=== PATIENT | female | born 1990 | race African-American/Black ===

== ENCOUNTER 2016-08-19 04:15 | Emergency (ER) | payer SELFPAY ==
[~2016-08-19 04:15] MED LIST: ALBU8I INH; DOXY100T PO; HYDR-3533 PO; METR500I3 PO
[2016-08-19 04:16] VITALS: BP 137/89; PULSE 112; RESP 16; TEMP 98.2; O2SAT 100
== END 2016-08-19 05:00 | disposition left against medical advice (07) ==
LOC: NED 04:15
DX: R10.9 Unspecified abdominal pain (principal)
CPT/HCPCS: 99281

== ENCOUNTER 2016-09-30 02:25 | Emergency (ER) | payer OTHER ==
[2016-09-30 02:27] VITALS: BP 140/74; PULSE 94; RESP 16; TEMP 98; O2SAT 100
[2016-09-30] MEDS ORDERED: AMOX500T PO (02:53)
[2016-09-30] MEDS ORDERED: IBUP800T23 PO (02:53)
--- NOTE | 2016-09-30 02:56 | PD ---
HPI Chief Complaint: Oral / Dental Pain or Problem Time Seen by Provider: 02:54 Travel History International Travel<30 days: No Contact w/Intl Traveler<30days: No Traveled to known affect area: No History of Present Illness HPI 26-year-old black female presents to emergency Department with complaints of dental pain. She states that over the last several days she's had increasing pain in her left maxilla. She's noticed a swelling in her hard palate. She's had problems with her teeth for some time. Symptoms are moderate. No fever chills. No drainage. PFSH Past Medical History Asthma: Yes Depression: Yes Diminished Hearing: No Genitourinary: Yes (KIDNEY INFECTION) Kidney Stones: Yes Respiratory: Yes (ASTHMA) Immunizations Current: Yes Menopausal: No : 4 Para: 2 Miscarriage: 1 : 1 Social History Alcohol Use: No Tobacco Use: Yes (1/2PPD) Substance Use: No Allergies-Medications (Allergen,Severity, Reaction): Coded Allergies: Bactrim (Verified Allergy, Severe, HIVES, 09/30/16) Reported Meds & Prescriptions Reported Meds & Active Scripts Active Ibuprofen 800 Mg Tab 800 Mg PO Q8H PRN Amoxicillin 500 Mg Tab 1,000 Mg PO BID Lortab 5 mg/325 mg (Hydrocodone/Acetaminophen 5 mg/325 mg) 1 Tab 1 Tab PO Q6H PRN Metronidazole In Nacl 0.7 (Metronidazole In Nacl) 500 Mg Tab 500 Mg PO BID 14 Days Doxycycline Hyclate 100 mg (Doxycycline Hyclate) 100 Mg Tab 100 Mg PO BID 14 Days Reported Ventolin Hfa (Albuterol Sulfate) 8 Gm Aero 1 Puff INH Q4H PRN * SHAKE WELL BEFORE USE * Review of Systems Except as stated in HPI: all other systems reviewed are Neg Physical Exam Narrative GENERAL: Well-developed, well-nourished in no acute distress. Nontoxic appearing. HEAD: Normocephalic, atraumatic. EYES: Pupils equal round and reactive. Extraocular motions intact. No scleral icterus. No injection or drainage. ENT: TMs clear without erythema. The external auditory canals clear. Nose: clear . Posterior pharynx is pink and moist. No tonsillar edema or exudate. Uvula midline. Airway patent. The patient has multiple dental caries. She points to her left upper maxilla. Tooth #9 is decayed to the gumline. There is a swelling of the gingiva consistent with an abscess. NECK: Trachea midline.Supple, nontender, moves head freely. No central bony tenderness or spasm. CARDIOVASCULAR: Regular rate and rhythm without murmurs, gallops, or rubs. RESPIRATORY: Clear to auscultation. Breath sounds equal bilaterally. No wheezes , rales, or rhonchi. GASTROINTESTINAL: Abdomen soft, non-tender, nondistended. No hepato-splenomegaly , or palpable masses. No guarding. EXTREMITIES: No clubbing, cyanosis, or edema. No joint tenderness, effusion, or edema noted. BACK: Nontender without deformity or crepitance. No flank tenderness. Data Data Last Documented VS Vital Signs Date Time Temp Pulse Resp B/P Pulse Ox O2 Delivery O2 Flow Rate FiO2 09/30/16 02:27 98.0 94 16 140/74 100 Orders Amoxicillin (Trimox) (09/30/16 03:00) Acetamin-Hydrocod 325-5 Mg ([place] 5-325 (09/30/16 03:00) MDM Medical Decision Making Medical Screen Exam Complete: Yes Emergency Medical Condition: Yes Medical Record Reviewed: Yes Differential Diagnosis MDM: Moderate Differential diagnoses: Dental abscess, dental caries, osteitis, cellulitis Narrative Course This is dental abscess, dentalgia Patient is given amoxicillin 1 g and Lortab 5 mg by mouth Diagnosis Primary Impression: Dental abscess Additional Impression: Dentalgia Patient Instructions: Narcotic given in the ED, General Instructions Additional Instructions: Rest. Saltwater gargles. [place] oil on cotton balls. Motrin and amoxicillin. follow-up with a dentist as soon as possible. And return to the ER if any problems. Med/Other Pt SpecificInfo: Prescription(s) given Scripts Ibuprofen 800 Mg Rep636 Mg PO Q8H PRN (Pain/Inflammation) #30 TAB Prov:Yariel Shepherd MD 09/30/16 Amoxicillin 500 Mg Tab1,000 Mg PO BID #40 TAB Prov:Yariel Shepherd MD 09/30/16 Disposition: 01 DISCHARGE HOME Condition: Stable Francisco Mckeon Sep 30, 2016 02:56
[2016-09-30] MEDS ORDERED: AMOXICILLIN (TRIHYDRATE) 500 MG CAP PO ONE (03:00)
[2016-09-30] MEDS ORDERED: ACETAMINOPHEN/HYDROcodone 325 MG/5 MG TAB PO ONE (03:00)
== END 2016-09-30 03:26 | disposition home or self-care (01) ==
LOC: NEPB 02:25
DX: K04.7 Periapical abscess without sinus (principal); F17.200 Nicotine dependence, unspecified, uncomplicated
CPT/HCPCS: 99282

== ENCOUNTER 2017-01-18 01:34 | Emergency (ER) | payer OTHER ==
[~2017-01-18 01:34] MED LIST changes: -ALBU8I INH; +AMOX500T PO; -DOXY100T PO; -HYDR-3533 PO; +IBUP800T23 PO; -METR500I3 PO
[2017-01-18 01:38] VITALS: BP 124/82; PULSE 92; RESP 16; TEMP 99.1
[2017-01-18] MEDS ORDERED: AMOX500T PO (02:02)
[2017-01-18] MEDS ORDERED: DICL75TA PO (02:02)
--- NOTE | 2017-01-18 02:06 | PD ---
HPI Chief Complaint: Oral / Dental Pain or Problem Time Seen by Provider: 02:02 Travel History International Travel<30 days: No Contact w/Intl Traveler<30days: No Traveled to known affect area: No History of Present Illness HPI 26-year-old black female presents to emergency Department with complaints of dental pain. She's had pain now for the last several days. Worsening causing right ear, sore throat and jaw pain. She has had no fever chills. No nausea vomiting. No bowel pain or urinary symptoms. Symptoms are moderate but can be severe. No alleviating factors. No facial swelling. PFSH Past Medical History Narrative Medical Asthma, depression, chronic dental pain Asthma: Yes Depression: Yes Diminished Hearing: No Genitourinary: Yes (KIDNEY INFECTION) Kidney Stones: Yes Respiratory: Yes (ASTHMA) Immunizations Current: Yes Tetanus Vaccination: < 5 Years ?: Not LMP: 12/13/16 Menopausal: No : 4 Para: 2 Miscarriage: 1 : 1 Past Surgical History Surgical History: No Previous Surgery Social History Alcohol Use: No Tobacco Use: Yes (1/2PPD) Substance Use: No Allergies-Medications (Allergen,Severity, Reaction): Coded Allergies: Bactrim (Verified Allergy, Severe, HIVES, 01/18/17) Reported Meds & Prescriptions Reported Meds & Active Scripts Active Cleocin (Clindamycin HCl) 150 Mg Cap 300 Mg PO Q6H Diclofenac Sodium DR (Diclofenac Sodium) 75 Mg Tabdr 75 Mg PO BID Amoxicillin 500 Mg Tab 1,000 Mg PO BID Review of Systems Except as stated in HPI: all other systems reviewed are Neg General / Constitutional: No: Fever, Chills Eyes: No: Blurred Vision, Photophobia HENT: Positive: Headaches, Sore Throat, Gingival Bleeding, Dental Difficulties , Earache, No: Neck Pain, Ear Discharge Cardiovascular: No: Chest Pain or Discomfort, Palpitations Respiratory: No: Cough, Shortness of Breath Gastrointestinal: No: Nausea, Vomiting Physical Exam Narrative GENERAL: Well-developed, well-nourished in no acute distress. Nontoxic appearing. HEAD: Normocephalic, atraumatic. EYES: Pupils equal round and reactive. Extraocular motions intact. No scleral icterus. No injection or drainage. ENT: TMs clear without erythema. The external auditory canals clear. Nose: clear . Posterior pharynx is pink and moist. No tonsillar edema or exudate. Uvula midline. Airway patent. The patient has diffuse periodontal disease and multiple, multiple dental caries. She points to her right maxilla as a source of her pain. She has multiple large dental caries to the gum line. There is diffuse dental pain to percussion as well as gingival erythema and edema. No facial swelling. NECK: Trachea midline.Supple, nontender, moves head freely. No central bony tenderness or spasm. CARDIOVASCULAR: Regular rate and rhythm without murmurs, gallops, or rubs. RESPIRATORY: Clear to auscultation. Breath sounds equal bilaterally. No wheezes , rales, or rhonchi. GASTROINTESTINAL: Abdomen soft, non-tender, nondistended. No hepato-splenomegaly , or palpable masses. No guarding. EXTREMITIES: No clubbing, cyanosis, or edema. No joint tenderness, effusion, or edema noted. BACK: Nontender without deformity or crepitance. No flank tenderness. Data Data Last Documented VS Vital Signs Date Time Temp Pulse Resp B/P Pulse Ox O2 Delivery O2 Flow Rate FiO2 01/18/17 01:38 99.1 92 16 124/82 Room Air Orders Amoxicillin (Trimox) (01/18/17 02:15) Acetamin-Hydrocod 325-5 Mg ([place] 5-325 (01/18/17 02:15) MDM Medical Decision Making Medical Screen Exam Complete: Yes Emergency Medical Condition: Yes Medical Record Reviewed: Yes Differential Diagnosis MDM: Moderate Differential diagnoses: Dental abscess, dental caries, osteitis, cellulitis Narrative Course Patient's given amoxicillin 500 and Lortab 5 milligram by mouth. This is dental caries, dentalgia Diagnosis Primary Impression: Dental caries Additional Impression: Dentalgia Patient Instructions: Narcotic given in the ED, General Instructions Additional Instructions: Rest. Saltwater gargles. [place] oil on cotton balls. Clindamycin and diclofenac. follow-up with a dentist as soon as possible. And return to the ER if any problems. Med/Other Pt SpecificInfo: Prescription(s) given Scripts Clindamycin (Cleocin)150 Mg [id number] Mg PO Q6H #56 CAP Prov:Lachelle Suarez MD 01/18/[address] 75 Mg Tabdr75 Mg PO BID #20 TAB Prov:Lachelle Suarez MD 01/18/17 Disposition: 01 DISCHARGE HOME Condition: Stable Francisco Mckeon Jan 18, 2017 02:05
[2017-01-18] MEDS ORDERED: AMOXICILLIN (TRIHYDRATE) 500 MG CAP PO ONE (02:15)
[2017-01-18] MEDS ORDERED: ACETAMINOPHEN/HYDROcodone 325 MG/5 MG TAB PO ONE (02:15)
[2017-01-18] MEDS ORDERED: CLIN150 PO (02:25)
== END 2017-01-18 02:29 | disposition home or self-care (01) ==
LOC: NEPD 01:34
DX: K02.9 Dental caries, unspecified (principal); F17.200 Nicotine dependence, unspecified, uncomplicated
CPT/HCPCS: 99284

== ENCOUNTER 2017-03-22 10:34 | Emergency (ER) | payer OTHER ==
[~2017-03-22] VITALS: Ht 170.2 cm; Wt 85.0 kg
[~2017-03-22 10:34] MED LIST changes: -AMOX500T PO; +CLIN150 PO; +DICL75TA PO; -IBUP800T23 PO
[2017-03-22 10:37] VITALS: BP 165/58; PULSE 78; RESP 15; TEMP 98.2; O2SAT 99
--- NOTE | 2017-03-22 11:14 | PD ---
HPI Chief Complaint: Related Problem Time Seen by Provider: 11:13 Travel History International Travel<30 days: No Contact w/Intl Traveler<30days: No Traveled to known affect area: No History of Present Illness HPI 26 YO 14-15 weeks F presents to the ED for evaluation of intermittent, sharp right-sided lower abdominal pain. Worsened by lying down. She endorses chronic nausea and vomiting throughout the , no worse recently. She denies fevers, chills, dysuria, changes in bowel habits, vaginal bleeding or vaginal discharge. She endorses diagnosis of UTI approximately 3 weeks ago and has been noncompliant with the antibiotics. She does not have any obstetric care. PFSH Past Medical History Asthma: Yes Depression: Yes Diminished Hearing: No Genitourinary: Yes (KIDNEY INFECTION) Kidney Stones: Yes Respiratory: Yes (ASTHMA) Immunizations Current: Yes ?: LMP: NOVEMBER 2016 Menopausal: No : 4 Para: 2 Miscarriage: 1 : 1 Social History Alcohol Use: No Tobacco Use: Yes (1/2PPD) Substance Use: No Allergies-Medications (Allergen,Severity, Reaction): Coded Allergies: sulfamethoxazole (Unverified Allergy, Severe, HIVES, 03/22/17) trimethoprim (Unverified Allergy, Severe, HIVES, 03/22/17) Reported Meds & Prescriptions Reported Meds & Active Scripts Active Macrobid (Nitrofurantoin Monoh/Nitrofur Macro) 100 Mg Cap 100 Mg PO BID 7 Days Reported [antibiotic] Review of Systems Except as stated in HPI: all other systems reviewed are Neg Physical Exam Narrative GENERAL: Well-nourished, well-developed black female in no acute distress. SKIN: Focused skin assessment warm/dry. HEAD: Normocephalic. EYES: No scleral icterus. No injection or drainage. NECK: Supple, trachea midline. No JVD or lymphadenopathy. CARDIOVASCULAR: Regular rate and rhythm without murmurs, gallops, or rubs. RESPIRATORY: Breath sounds equal bilaterally. No accessory muscle use. GASTROINTESTINAL: Abdomen soft, protuberant, non-tender, nondistended. MUSCULOSKELETAL: No cyanosis, or edema. BACK: Nontender without obvious deformity. No CVA tenderness. Data Data Last Documented VS Vital Signs Date Time Temp Pulse Resp B/P (MAP) Pulse Ox O2 Delivery O2 Flow Rate FiO2 03/22/17 12:58 97.8 76 16 110/78 (89) 99 Orders Orders Urinalysis - C+S If Indicated (03/22/17 11:14) Ed Urine Pregnancytest Poc (03/22/17 11:14) Beta Hcg (Quant/Titer) (03/22/17 11:14) Ed Poc Ultrasound (03/22/17 11:14) Ondansetron Odt (Zofran Odt) (03/22/17 13:00) Nitrofurantoin Monohyd Macrocr (Macrobid (03/22/17 13:00) Labs Laboratory Tests Test 03/22/17 11:35 Urine Color YELLOW Urine Turbidity CLOUDY Urine pH 7.5 Urine Specific [place] 1.020 Urine Protein TRACE mg/dL Urine Glucose (UA) NEG mg/dL Urine Ketones NEG mg/dL Urine Occult Blood NEG Urine Nitrite NEG Urine Bilirubin NEG Urine Urobilinogen 2.0 MG/DL Urine Leukocyte Esterase SMALL Urine RBC LESS THAN 1 /hpf Urine WBC 4 /hpf Urine Squamous Epithelial Cells 3 /hpf Urine Amorphous Sediment MANY Urine Bacteria OCC /hpf Urine Mucus FEW /lpf Microscopic Urinalysis Comment CULT NOT INDICATED Human Chorionic Gonadotropin, Quant 14618 MIU/ML MDM Medical Decision Making Medical Screen Exam Complete: Yes Emergency Medical Condition: Yes Differential Diagnosis intrauterine versus round ligament pain versus ovarian torsion versus appendicitis versus other Narrative Course 26 YO 14-15 weeks F presents to the ED for evaluation of intermittent, sharp right-sided lower abdominal pain. Worsened by lying down. She endorses chronic nausea and vomiting throughout the , no worse recently. She denies fevers, chills, dysuria, changes in bowel habits, vaginal bleeding or vaginal discharge. She endorses diagnosis of UTI approximately 3 weeks ago and has been noncompliant with the antibiotics. She does not have any obstetric care. Vitals reviewed. Abdominal exam is unremarkable. Bedside ultrasound shows intrauterine with active motion and heart rate in the 140s. Evidence for UTI on the UA. Patient was administered a single dose of Zofran in the ED. She is prescribed Macrobid twice a day 7 days, first dose administered in the ED. She is instructed to take the antibiotics as prescribed, establish OB care as soon as possible. She indicated understanding of the instructions and is agreeable care plan. She is stable and discharged home. Procedures Procedure Narrative Emergency Department Pelvic ultrasound was performed with patient consent. The curvilinear probe was used in the transverse and sagittal views within the suprapubic region revealing single intrauterine . heart rate was 145. Diagnosis Primary Impression: Second trimester Additional Impression: UTI in Qualified Codes: O23.42 - Unspecified infection of urinary tract in , second trimester Referrals: Housing Development Specialist Patient Instructions: Abdominal Pain in (ED), General Instructions, at 15 to 18 Weeks (ED), Urinary Tract Infection in (ED) Additional Instructions: Rest, hydrate. Take all antibiotics as they are prescribed, even if your symptoms resolve. Establish care with a stock digger as soon as possible. Return to the ED for any urgent or emergent medical condition. Med/Other Pt SpecificInfo: Prescription(s) given Scripts Nitrofurantoin Monohydrate Macrocrystals (Macrobid) 100 Mg Cap 100 MG PO BID for Infection for 7 Days, CAP 0 Refills Prov: Miles Landaverde MD 03/22/17 Disposition: 01 DISCHARGE HOME Condition: Stable Juliet Crum Mar 22, 2017 11:14
[2017-03-22] MEDS ORDERED: antibiotic (11:18)
[2017-03-22 12:01] LABS: BACTERIA, URINE OCC /hpf; BLOOD, URINE NEG (NEG); COMMENT (UR) CULT NOT INDICATED; CULTURE IF INDICATED CULT NOT INDICATED; GLUCOSE,URINE NEG (NEG); KETONE, URINE NEG (NEG); MUCUS URINE FEW /lpf (OCC); NITRITE,URINE NEG (NEG); PH, URINE 7.5 (5.0-8.5); SQUAMOUS EPITHELIAL CELL URINE 3 /hpf (0-5); URINE COLOR YELLOW (YELLW/STRAW)
[2017-03-22] MEDS ORDERED: MACR100C2 PO (12:50)
[2017-03-22 12:58] VITALS: BP 110/78; TEMP 97.8
[2017-03-22] MEDS ORDERED: NITROFURANTOIN MONOHYD MACROCR 100 MG CAP PO ONE (13:00)
[2017-03-22] MEDS ORDERED: CEPHALEXIN MONOHYDRATE 500 MG CAP PO ONE (13:00)
[2017-03-22] MEDS ORDERED: ONDANSETRON ODT 4 MG TAB PO ONE (13:00)
--- NOTE | 2017-03-22 13:16 | PD ---
Data Data Last Documented VS Vital Signs Date Time Temp Pulse Resp B/P (MAP) Pulse Ox O2 Delivery O2 Flow Rate FiO2 03/22/17 12:58 97.8 76 16 110/78 (89) 99 Orders Orders Urinalysis - C+S If Indicated (03/22/17 11:14) Ed Urine Pregnancytest Poc (03/22/17 11:14) Beta Hcg (Quant/Titer) (03/22/17 11:14) Ed Poc Ultrasound (03/22/17 11:14) Ondansetron Odt (Zofran Odt) (03/22/17 13:00) Nitrofurantoin Monohyd Macrocr (Macrobid (03/22/17 13:00) Labs Laboratory Tests Test 03/22/17 11:35 Urine Color YELLOW Urine Turbidity CLOUDY Urine pH 7.5 Urine Specific [place] 1.020 Urine Protein TRACE mg/dL Urine Glucose (UA) NEG mg/dL Urine Ketones NEG mg/dL Urine Occult Blood NEG Urine Nitrite NEG Urine Bilirubin NEG Urine Urobilinogen 2.0 MG/DL Urine Leukocyte Esterase SMALL Urine RBC LESS THAN 1 /hpf Urine WBC 4 /hpf Urine Squamous Epithelial Cells 3 /hpf Urine Amorphous Sediment MANY Urine Bacteria OCC /hpf Urine Mucus FEW /lpf Microscopic Urinalysis Comment CULT NOT INDICATED MDM Supervised Visit with [id number]: Yes Narrative Course The history, exam, and medical decision-making in the associated mid-level provider note were completed with my assistance. I reviewed and agree with the findings presented. I attest that I had a [id number] encounter with the patient on the same day, and personally performed and documented my assessment and findings in the medical record. *My assessment and Findings: 26-year-old presents emergent from with some lower abdominal pain is setting of . She hasn't really right sided inguinal pain that seems consistent around ligament pain. She's had no care. Bedside ultrasound was reassuring. No bleeding cramping or other symptoms. She has been treated for UTI but she states antibiotics made her sick. We'll treat her with Macrobid. 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 Take all antibiotics as they are prescribed, even if your symptoms resolve. Establish care with a supervisor broadloom as soon as possible. Return to the ED for any urgent or emergent medical condition. Scripts Nitrofurantoin Monohydrate Macrocrystals (Macrobid) 100 Mg Cap 100 MG PO BID for Infection for 7 Days, CAP 0 Refills Prov: Miles Landaverde MD 03/22/17 Disposition: 01 DISCHARGE HOME Condition: Stable Miles Landaverde MD Mar 22, 2017 13:16
[2017-03-22 13:30] LABS: BETA HCG QUANT 28198 MIU/ML (0-5)
== END 2017-03-22 12:59 | disposition home or self-care (01) ==
LOC: NEPD 10:34
DX: O23.42 Unspecified infection of urinary tract in pregnancy, second trimester (principal); R11.2 Nausea with vomiting, unspecified; J45.909 Unspecified asthma, uncomplicated; F32.9 Major depressive disorder, single episode, unspecified; O99.332 Smoking (tobacco) complicating pregnancy, second trimester; Z3A.15 15 weeks gestation of pregnancy; Z34.92 Encounter for supervision of normal pregnancy, unspecified, second trimester
CPT/HCPCS: 81001; 84702; 84703; 99284

== ENCOUNTER 2017-07-11 10:33 | Emergency (ER) | payer OTHER ==
[~2017-07-11] VITALS: Ht 170.2 cm; Wt 95.0 kg
[~2017-07-11 10:33] MED LIST changes: -CLIN150 PO; -DICL75TA PO; +MACR100C2 PO; +antibiotic
[2017-07-11 10:35] VITALS: BP 135/75; PULSE 114; RESP 16; TEMP 98.7; O2SAT 99
[2017-07-11] MEDS ORDERED: SODIUM CHLOR 0.9% 1000 ML INJ 1,000 ML IV ONE (11:18)
[2017-07-11] MEDS ORDERED: ONDANSETRON HCL 4 MG/2 ML VIAL IV PUSH ONE (11:30)
[2017-07-11 11:59] LABS: AUTOMATED NEUTROPHIL # 3.6 TH/MM3 (1.8-7.7); BASOPHIL % 0.7 % (0.0-2.0); EOSINOPHIL # 0.3 TH/MM3 (0-0.4); HEMATOCRIT 31.3 % (35.0-46.0); HEMOGLOBIN 10.6 GM/DL (11.6-15.3); LYMPH % 26.6 % (9.0-44.0); LYMPHOCYTE # 1.7 TH/MM3 (1.0-4.8); MEAN CORPUSCULAR HEMOGLOBIN 31.3 PG (27.0-34.0); MEAN CORPUSCULAR HGB CONC 33.7 % (32.0-36.0); MEAN PLATELET VOLUME 7.8 FL (7.0-11.0); MONO % 9.6 % (0.0-8.0); MONOCYTE # 0.6 TH/MM3 (0-0.9); NEUT % 58.1 % (16.0-70.0); PLATELET COUNT 237 TH/MM3 (150-450); RED BLOOD COUNT 3.37 MIL/MM3 (4.00-5.30); RED CELL DISTRIBUTION WIDTH 13.8 % (11.6-17.2); WHITE BLOOD COUNT 6.2 TH/MM3 (4.0-11.0)
[2017-07-11 12:01] LABS: AMORPHOUS SEDIMENT, URINE MOD; BACTERIA, URINE OCC /hpf; BILIRUBIN, URINE NEG (NEG); BLOOD, URINE NEG (NEG); GLUCOSE,URINE NEG (NEG); KETONE, URINE NEG (NEG); MUCUS URINE FEW /lpf (OCC); NITRITE,URINE NEG (NEG); PH, URINE 7.5 (5.0-8.5); SQUAMOUS EPITHELIAL CELL URINE 5 /hpf (0-5); URINE COLOR YELLOW (YELLW/STRAW); URINE LEUKOCYTE ESTERASE TRACE (NEG)
[2017-07-11 12:03] VITALS: PULSE 78; RESP 15; O2SAT 99
--- NOTE | 2017-07-11 12:04 | PD ---
HPI Chief Complaint: GI Complaint Time Seen by Provider: 11:01 Travel History International Travel<30 days: No Contact w/Intl Traveler<30days: No Traveled to known affect area: No History of Present Illness HPI 27 year old female presents to the emergency department for evaluation of 2 episodes of vomiting and nasal bleeding. The patient is resting comfortably in bed and speaking on her cell phone. The patient states she noticed emesis is dark red. Patient is 30 weeks with her third , LMP 11/28/16. The first 2 pregnancies resulted in a live pregnancies. Patient denies any fever , chills, malaise. Patient denies any abdominal pain at this time but does state she feels intermittently nauseous. To which she states drinking Sprite helps alleviate. Patient brought a bottle of Sprite with her to the emergency department. Patient denies any diarrhea, vaginal discharge or bleeding, cramping. No major medical history. PFSH Past Medical History Asthma: Yes Depression: Yes Diminished Hearing: No Genitourinary: Yes (KIDNEY INFECTION) Kidney Stones: Yes Respiratory: Yes (ASTHMA) Immunizations Current: Yes ?: LMP: NOVEMBER 2016 Menopausal: No : 4 Para: 2 Miscarriage: 1 : 1 Social History Alcohol Use: No Tobacco Use: No (quit a few months ago) Substance Use: Yes (marijuana last used 1month ago) Allergies-Medications (Allergen,Severity, Reaction): Coded Allergies: sulfamethoxazole (Verified Allergy, Severe, HIVES, 07/11/17) trimethoprim (Verified Allergy, Severe, HIVES, 07/11/17) Reported Meds & Prescriptions Reported Meds & Active Scripts Active Phenergan (Promethazine HCl) 25 Mg Tablet 25 Mg PO Q6H PRN Keflex (Cephalexin) 500 Mg Cap 500 Mg PO Q12H 7 Days Review of Systems Except as stated in HPI: all other systems reviewed are Neg Physical Exam Narrative GENERAL: Well-nourished, well-developed 27 year old female patient in acute distress. Nontoxic appearing. SKIN: Focused skin assessment warm/dry. HEAD: Normocephalic. Atraumatic. EYES: No scleral icterus. No injection or drainage. ENT: Mucosa pink and moist. No erythema or exudates. No uvular edema. No uvular , palatal, or tonsillar deviation. Airway patent. Nasal turbinates appear mildly hypertrophic with scant nasal blood, No purulent drainage or septal hematoma. NECK: Supple, trachea midline. No JVD or lymphadenopathy. CARDIOVASCULAR: Regular rate and rhythm without murmurs, gallops, or rubs. RESPIRATORY: Breath sounds equal bilaterally. No accessory muscle use. GASTROINTESTINAL: Abdomen soft, non-tender, NABS. Fetus: 30 weeks gestation, movement noted, FHR 148bpm MUSCULOSKELETAL: Full range of motion in both upper and lower extremities. No obvious deformity, ecchymosis, erythema, cyanosis, or edema. BACK: No midline tenderness, obvious deformity, ecchymosis, erythema, cyanosis. No CVA tenderness. Data Data Last Documented VS Vital Signs Date Time Temp Pulse Resp B/P (MAP) Pulse Ox O2 Delivery O2 Flow Rate FiO2 07/11/17 12:03 78 15 99 Room Air 07/11/17 10:35 98.7 Orders Orders Complete Blood Count With Diff (07/11/17 11:18) Comprehensive Metabolic Panel (07/11/17 11:18) Urinalysis - C+S If Indicated (07/11/17 11:18) Lipase (07/11/17 11:18) Iv Access Insert/Monitor (07/11/17 11:18) Ecg Monitoring (07/11/17 11:18) Ondansetron Inj (Zofran Inj) (07/11/17 11:30) Sodium Chlor 0.9% 1000 Ml Inj (Ns 1000 M (07/11/17 11:18) Heart Tones (07/11/17 11:18) Ed Discharge Order (07/11/17 12:37) Labs Laboratory Tests Test 07/11/17 11:40 White Blood Count 6.2 TH/MM3 Red Blood Count 3.37 MIL/MM3 Hemoglobin 10.6 GM/DL Hematocrit 31.3 % Mean Corpuscular Volume 93.0 FL Mean Corpuscular Hemoglobin 31.3 PG Mean Corpuscular Hemoglobin Concent 33.7 % Red Cell Distribution Width 13.8 % Platelet Count 237 TH/MM3 Mean Platelet Volume 7.8 FL Neutrophils (%) (Auto) 58.1 % Lymphocytes (%) (Auto) 26.6 % Monocytes (%) (Auto) 9.6 % Eosinophils (%) (Auto) 5.0 % Basophils (%) (Auto) 0.7 % Neutrophils # (Auto) 3.6 TH/MM3 Lymphocytes # (Auto) 1.7 TH/MM3 Monocytes # (Auto) 0.6 TH/MM3 Eosinophils # (Auto) 0.3 TH/MM3 Basophils # (Auto) 0.0 TH/MM3 CBC Comment DIFF FINAL Differential Comment Urine Color YELLOW Urine Turbidity HAZY Urine pH 7.5 Urine Specific [place] 1.011 Urine Protein NEG mg/dL Urine Glucose (UA) NEG mg/dL Urine Ketones NEG mg/dL Urine Occult Blood NEG Urine Nitrite NEG Urine Bilirubin NEG Urine Urobilinogen 2.0 MG/DL Urine Leukocyte Esterase TRACE Urine RBC LESS THAN 1 /hpf Urine WBC 2 /hpf Urine Squamous Epithelial Cells 5 /hpf Urine Amorphous Sediment MOD Urine Bacteria OCC /hpf Urine Mucus FEW /lpf Microscopic Urinalysis Comment CULT NOT INDICATED Blood Urea Nitrogen 6 MG/DL Creatinine 0.69 MG/DL Random Glucose 54 MG/DL Total Protein 6.9 GM/DL Albumin 3.0 GM/DL Calcium Level 8.7 MG/DL Alkaline Phosphatase 100 U/L Aspartate Amino Transf (AST/SGOT) 11 U/L Alanine Aminotransferase (ALT/SGPT) 15 U/L Total Bilirubin 0.3 MG/DL Sodium Level 137 MEQ/L Potassium Level 3.7 MEQ/L Chloride Level 106 MEQ/L Carbon Dioxide Level 24.4 MEQ/L Anion Gap 7 MEQ/L Estimat Glomerular Filtration Rate 123 ML/MIN Lipase 111 U/L [facility] Medical Decision Making Medical Screen Exam Complete: Yes Emergency Medical Condition: Yes Differential Diagnosis Differential diagnosis include but not limited to gastroenteritis, upper GI bleed, nasal bleeding, nausea Narrative Course Patient place on monitor, IV obtained and blood work sent to the lab. CBC, CMP, LIPASE, UA ordered and pending. 1L NS bolus and 4mg IV Zofran given. heart tones obtained. Blood work shows no acute abnormalities. UA shows bacteria and esterase. Patient given prescription for Keflex and Phenergan. heart tones 148 bpm. Patient resting comfortably in bed and reports feeling much better. Patient discharged to OB ED for further evaluation. Laboratory Tests Test 07/11/17 11:40 White Blood Count 6.2 TH/MM3 Red Blood Count 3.37 MIL/MM3 Hemoglobin 10.6 GM/DL Hematocrit 31.3 % Mean Corpuscular Volume 93.0 FL Mean Corpuscular Hemoglobin 31.3 PG Mean Corpuscular Hemoglobin Concent 33.7 % Red Cell Distribution Width 13.8 % Platelet Count 237 TH/MM3 Mean Platelet Volume 7.8 FL Neutrophils (%) (Auto) 58.1 % Lymphocytes (%) (Auto) 26.6 % Monocytes (%) (Auto) 9.6 % Eosinophils (%) (Auto) 5.0 % Basophils (%) (Auto) 0.7 % Neutrophils # (Auto) 3.6 TH/MM3 Lymphocytes # (Auto) 1.7 TH/MM3 Monocytes # (Auto) 0.6 TH/MM3 Eosinophils # (Auto) 0.3 TH/MM3 Basophils # (Auto) 0.0 TH/MM3 CBC Comment DIFF FINAL Differential Comment Urine Color YELLOW Urine Turbidity HAZY Urine pH 7.5 Urine Specific [place] 1.011 Urine Protein NEG mg/dL Urine Glucose (UA) NEG mg/dL Urine Ketones NEG mg/dL Urine Occult Blood NEG Urine Nitrite NEG Urine Bilirubin NEG Urine Urobilinogen 2.0 MG/DL Urine Leukocyte Esterase TRACE Urine RBC LESS THAN 1 /hpf Urine WBC 2 /hpf Urine Squamous Epithelial Cells 5 /hpf Urine Amorphous Sediment MOD Urine Bacteria OCC /hpf Urine Mucus FEW /lpf Microscopic Urinalysis Comment CULT NOT INDICATED Blood Urea Nitrogen 6 MG/DL Creatinine 0.69 MG/DL Random Glucose 54 MG/DL Total Protein 6.9 GM/DL Albumin 3.0 GM/DL Calcium Level 8.7 MG/DL Alkaline Phosphatase 100 U/L Aspartate Amino Transf (AST/SGOT) 11 U/L Alanine Aminotransferase (ALT/SGPT) 15 U/L Total Bilirubin 0.3 MG/DL Sodium Level 137 MEQ/L Potassium Level 3.7 MEQ/L Chloride Level 106 MEQ/L Carbon Dioxide Level 24.4 MEQ/L Anion Gap 7 MEQ/L Estimat Glomerular Filtration Rate 123 ML/MIN Lipase 111 U/L Diagnosis Primary Impression: Gastroenteritis Referrals: [facility] Person Patient Instructions: Gastroenteritis (ED), General Instructions Additional Instructions: Please return to emergency department if your symptoms return or worsen. Follow up with your primary care provider. Take medications as prescribed. Med/Other Pt SpecificInfo: Prescription(s) given Scripts Promethazine (Phenergan) 25 Mg Tablet 25 MG PO Q6H Y for NAUSEA OR VOMITING, #10 TAB 0 Refills Prov: France Simeon 07/11/17 Cephalexin (Keflex) 500 Mg Cap 500 MG PO Q12H for Infection for 7 Days, #14 CAP 0 Refills Prov: France Simeon 07/11/17 Disposition: 01 DISCHARGE HOME Condition: Stable France Simeon Jul 11, 2017 12:04
[2017-07-11 12:18] LABS: ALT (GPT) 15 U/L (10-53); AST (GOT) 11 U/L (15-37); BICARBONATE 24.4 MEQ/L (21.0-32.0); BLOOD UREA NITROGEN 6 MG/DL (7-18); CALCIUM 8.7 MG/DL (8.5-10.1); CHLORIDE 106 MEQ/L (98-107); CREATININE 0.69 MG/DL (0.50-1.00); GLOMERULAR FILTRATION RATE 123 ML/MIN (>89); GLUCOSE,RANDOM 54 MG/DL (74-106); LIPASE 111 U/L (73-393); SODIUM (NA) 137 MEQ/L (136-145)
[2017-07-11 12:20] LABS: ALKALINE PHOSPHATASE 100 U/L (45-117); TOTAL BILIRUBIN ADULT 0.3 MG/DL (0.2-1.0); TOTAL PROTEIN 6.9 GM/DL (6.4-8.2)
[2017-07-11] MEDS ORDERED: CEPH-460 PO (12:32)
[2017-07-11] MEDS ORDERED: PROM25TA10 PO (12:32)
[2017-07-11 13:35] VITALS: BP 128/70
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
== END 2017-07-11 15:20 | disposition home or self-care (01) ==
LOC: HOBED 10:33 → NEPC 13:41 → HOBED 15:20
DX: O99.613 Diseases of the digestive system complicating pregnancy, third trimester (principal); K52.9 Noninfective gastroenteritis and colitis, unspecified; K92.0 Hematemesis; Z3A.30 30 weeks gestation of pregnancy
CPT/HCPCS: 80053; 81001; 83690; 85025; 96361; 96374; 99284; J2405; J7030

== ENCOUNTER 2017-08-07 10:28 | Emergency (ER) | payer OTHER ==
[~2017-08-07 10:28] MED LIST changes: +CEPH-460 PO; -MACR100C2 PO; +PROM25TA10 PO; -antibiotic
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
== END 2017-08-07 12:04 | disposition home or self-care (01) ==
LOC: HOBED 10:28
DX: O26.893 Other specified pregnancy related conditions, third trimester (principal); Z3A.34 34 weeks gestation of pregnancy
CPT/HCPCS: 59025

== ENCOUNTER 2017-09-01 15:52 | Emergency (ER) | payer OTHER ==
--- NOTE | 2017-09-01 16:48 | PD ---
History of Present Illness History of Present Illness HPI HPI Chief Complaint spotting Date Seen: Sep 01, 2017 Time Seen: 16:39 Travel History International Travel<30 Days: No Contact w/Intl Traveler<30Days: No Known Affected Area: No History of Present Illness HPI 27y/o @ 38.1wks. She has PNC with Kristi Rohit. She presents today for red spotting when she wiped. She was seen earlier today for same at [place] but refused cervical exam. She had sex 2 days ago. No LOF or ctx. +FM. is c/b MJ use, GBS+, and CT in May (treated). Weeks Gestation: 38 Para: 2 : 5 History (Limited) History Past Medical History Narrative Medical asthma (occasional inhaler use) Obstetric History Obstetric History x2 Past Surgical History Surgical History: No Previous Surgery Family History Family History: Negative Social History Alcohol Use: No Tobacco Use: No Substance Abuse: Yes (MJ in ) Allergies-Medications Allergies-Medications (Allergen,Severity, Reaction): Coded Allergies: No Known Allergies (Verified Adverse Reaction, Unknown, 08/21/17) Home Meds Active Scripts W/O Vit A W/ Fe Fumar (Citranatal [place]) 27-1-260 Mg Cap, 1 CAP PO DAILY Y for daily, #30 CAP 5 Refills Prov:Volodymyr Draper MD 04/15/17 ROS Review of Systems Except as stated in HPI: all other systems reviewed are Neg Physical Exam Physical Exam Narrative General: well developed, well nourished, no acute distress HEENT: normocephalic atraumatic, extraocular movements intact, neck supple Abdomen: soft, gravid, nontender, nondistended Uterus: fundus term, soft Extremities: full range of motion Skin: normal coloration, no rashes, no suspicious skin lesions noted Neurologic: cranial nerves 2-12 grossly intact, normal muscle tone, normal gait Psychiatric: normal mood and affect, appropriate FHTs: 130s, +accels, no decels, moderate variability, reactive [place]: quiet Cvx: 2/20/-3 Data Data Data Vital Signs Reviewed: Yes Orders Orders Vital Signs (Adult) .ON ADMISSION (09/01/17 16:30) ^ Labor Status (09/01/17 16:30) ^ Non Stress Test (09/01/17 16:30) Group B Strep: Positive MDM MDM Plan 21y/o @ 38.1wks with spotting. -- likely due to recent intercourse; only pink on glove with exam -- cvx 09/17/-3, toco quiet Dispo: stable for d/c home with precautions Diagnosis Diagnosis: Primary Impression: 38 weeks gestation of Additional Impressions: Spotting affecting in third trimester Positive GBS test Marijuana use Margi Ordoñez MD Sep 01, 2017 16:45 Margi Ordoñez MD Sep 01, 2017 16:48
== END 2017-09-01 17:09 | disposition home or self-care (01) ==
LOC: HOBED 15:52
DX: O26.853 Spotting complicating pregnancy, third trimester (principal); F12.10 Cannabis abuse, uncomplicated; O99.820 Streptococcus B carrier state complicating pregnancy; Z3A.38 38 weeks gestation of pregnancy
CPT/HCPCS: 59025

== ENCOUNTER 2017-09-08 22:44 | Emergency (ER) | payer OTHER ==
--- NOTE | 2017-09-08 23:23 | PD ---
HPI Chief Complaint Contractions Date Seen: Sep 08, 2017 Time Seen: 23:18 Travel History International Travel<30 Days: No Contact w/Intl Traveler<30Days: No Known Affected Area: No History of Present Illness HPI 27-year-old 5 para 2 at 39 weeks gestation who comes with concerns of contractions and leaking fluid. History Past Medical History Medical History: Denies Significant Hx Obstetric History Obstetric History 2 prior vaginal deliveries Current with the [facility] Past Surgical History Surgical History: No Previous Surgery Family History Family History: Negative Social History Alcohol Use: No Tobacco Use: No Substance Abuse: No Allergies-Medications (Allergen,Severity, Reaction): Coded Allergies: sulfamethoxazole (Verified Allergy, Severe, HIVES, 07/11/17) trimethoprim (Verified Allergy, Severe, HIVES, 07/11/17) Home Meds Active Scripts Promethazine (Phenergan) 25 Mg Tablet, 25 MG PO Q6H Y for NAUSEA OR VOMITING, # 10 TAB 0 Refills Prov:France Simeon 07/11/17 Cephalexin (Keflex) 500 Mg Cap, 500 MG PO Q12H for Infection for 7 Days, #14 CAP 0 Refills Prov:France Simeon 07/11/17 Review of Systems Except as stated in HPI: all other systems reviewed are Neg Physical Exam Narrative GENERAL: Well-nourished, well-developed patient. SKIN: Warm and dry. HEAD: Normocephalic and atraumatic. EYES: No scleral icterus. No injection or drainage. ENT: No nasal drainage noted. Mucous membranes pink. Airway patent. NECK: Supple, trachea midline. No JVD. CARDIOVASCULAR: Regular rate and rhythm without murmurs, gallops, or rubs. RESPIRATORY: Breath sounds equal bilaterally. No accessory muscle use. ABDOMEN/GI: Abdomen soft, non-tender, bowel sounds present, no rebound, no guarding Gravid to [-] weeks size Fundal Height: [-] GENITOURINARY: External Genitalia: intact and normal in appearance BUS glands: [-] Cervix: [-] Dilatation: [2-] Effacement: [50-] Station: [--2] Presentation: [-] Membranes: [intact or ruptured] Uterine Contractions: [-] FHT's: Category: [1-] Baseline: [-] Reactive: [-] Variability: [-] Decels: [-] EXTREMITIES: No cyanosis or edema. BACK: Nontender without obvious deformity. No CVA tenderness. NEUROLOGICAL: Awake and alert. Motor and sensory grossly within normal limits. Five out of 5 muscle strength in all muscle groups. Normal speech. Data Data Group B Strep: Positive MDM Medical Record Reviewed: Yes Narrative Course / MDM Assessment: 39 week multipara not in labor, not ruptured. Plan: Routine follow-up Diagnosis Diagnosis: Primary Impression: 39 weeks gestation of Additional Impression: Irregular uterine contractions Disposition: DISCHARGE HOME Condition: Good Miles Swain MD Sep 08, 2017 23:23
== END 2017-09-08 23:42 | disposition home or self-care (01) ==
LOC: HOBED 22:44
DX: O47.1 False labor at or after 37 completed weeks of gestation (principal); Z3A.39 39 weeks gestation of pregnancy; Z88.2 Allergy status to sulfonamides; Z88.8 Allergy status to other drugs, medicaments and biological substances; Z79.899 Other long term (current) drug therapy
CPT/HCPCS: 59025; 84112

== ENCOUNTER 2017-09-15 07:32 | Emergency (ER) | payer OTHER ==
[2017-09-15 08:12] VITALS: BP 116/80; PULSE 99
[2017-09-15] MEDS ORDERED: ACETAMIN 325 MG/BUTALBITAL 50 MG/CAFFEINE 40 MG TAB PO ONE (08:15)
[2017-09-15 08:16] VITALS: BP 117/78; PULSE 96
[2017-09-15 08:31] VITALS: BP 116/73; PULSE 82
[2017-09-15 08:46] VITALS: BP 117/71; PULSE 82
[2017-09-15 08:54] LABS: HEMATOCRIT 28.1 % (35.0-46.0); HEMOGLOBIN 9.6 GM/DL (11.6-15.3); MEAN CELL VOLUME 91.1 FL (80.0-100.0); MEAN CORPUSCULAR HEMOGLOBIN 31.2 PG (27.0-34.0); MEAN CORPUSCULAR HGB CONC 34.2 % (32.0-36.0); MEAN PLATELET VOLUME 7.8 FL (7.0-11.0); PLATELET COUNT 241 TH/MM3 (150-450); RED BLOOD COUNT 3.08 MIL/MM3 (4.00-5.30); RED CELL DISTRIBUTION WIDTH 13.8 % (11.6-17.2); WHITE BLOOD COUNT 5.8 TH/MM3 (4.0-11.0)
[2017-09-15 09:01] VITALS: BP 98/63; PULSE 83
[2017-09-15 09:14] LABS: ALBUMIN 2.8 GM/DL (3.4-5.0); ALT (GPT) 10 U/L (10-53); AST (GOT) 10 U/L (15-37); BICARBONATE 22.2 MEQ/L (21.0-32.0); BLOOD UREA NITROGEN 7 MG/DL (7-18); CALCIUM 8.6 MG/DL (8.5-10.1); CHLORIDE 107 MEQ/L (98-107); CREATININE 0.69 MG/DL (0.50-1.00); GLOMERULAR FILTRATION RATE 123 ML/MIN (>89); GLUCOSE,RANDOM 65 MG/DL (74-106); SODIUM (NA) 138 MEQ/L (136-145)
[2017-09-15 09:15] VITALS: BP 112/73; PULSE 79
[2017-09-15 09:17] LABS: ALKALINE PHOSPHATASE 192 U/L (45-117); TOTAL BILIRUBIN ADULT 0.3 MG/DL (0.2-1.0); TOTAL PROTEIN 6.5 GM/DL (6.4-8.2)
--- NOTE | 2017-09-15 09:27 | PD ---
HPI Chief Complaint 40 weeks and 1 day Headache since 3am Nausea Date Seen: Sep 15, 2017 Time Seen: 08:00 Travel History International Travel<30 Days: No Contact w/Intl Traveler<30Days: No Known Affected Area: No History of Present Illness HPI Pt is a 27 yo who presents with c/o headache since 3am today. Pt receives care with Kristi Bee, [facility] 09-14-2017 Pt states she has associated nausea and vomited 2x initially. Pt states she took Tylenol PO without any relief. Pt states that she had an elevated BP at home 2 days ago. She reports some blurred vision on her way here. No abdominal pain. She was seen in office last and no abnormality noted. Weeks Gestation: 40 Para: 2 : 5 : 2 History Past Medical History Narrative Medical Asthma, well controlled with Albuterol inhaler PRN Obstetric History Obstetric History x2 , uncomplicated, x2 terminations Past Surgical History Surgical History: No Previous Surgery Family History Family History: Negative Social History Alcohol Use: No Tobacco Use: No Substance Abuse: No Allergies-Medications (Allergen,Severity, Reaction): Coded Allergies: sulfamethoxazole (Verified Allergy, Severe, HIVES, 07/11/17) trimethoprim (Verified Allergy, Severe, HIVES, 07/11/17) Home Meds Active Scripts Promethazine (Phenergan) 25 Mg Tablet, 25 MG PO Q6H Y for NAUSEA OR VOMITING, # 10 TAB 0 Refills Prov:France Simeon 07/11/17 Cephalexin (Keflex) 500 Mg Cap, 500 MG PO Q12H for Infection for 7 Days, #14 CAP 0 Refills Prov:France SimeonP 07/11/17 Review of Systems Except as stated in HPI: all other systems reviewed are Neg Physical Exam Narrative GENERAL: Well-nourished, well-developed patient. SKIN: Warm and dry. HEAD: Normocephalic and atraumatic. EYES: No scleral icterus. No injection or drainage. ENT: No nasal drainage noted. Mucous membranes pink. Airway patent. NECK: Supple, trachea midline. No JVD. CARDIOVASCULAR: Regular rate and rhythm without murmurs, gallops, or rubs. RESPIRATORY: Breath sounds equal bilaterally. No accessory muscle use. BREASTS: Bilateral exam showed no masses , no retractions, no nipple discharge. ABDOMEN/GI: Abdomen soft, non-tender, bowel sounds present, no rebound, no guarding Gravid to [39] weeks size Fundal Height: [39] GENITOURINARY: External Genitalia: intact and normal in appearance BUS glands: [wnl] Cervix: [soft] Dilatation: [1-2] Effacement: [50%] Station: [-3] Presentation: [vertex] Membranes: [intact] Uterine Contractions: [none] FHT's: Category: [1] Baseline: [120s] Reactive: [-] Variability: [moderate] Decels: [none] EXTREMITIES: No cyanosis or edema. BACK: Nontender without obvious deformity. No CVA tenderness. NEUROLOGICAL: Awake and alert. Motor and sensory grossly within normal limits. Five out of 5 muscle strength in all muscle groups. Normal speech. Data Data Vital Signs Reviewed: Yes MDM Plan Pt is a 27 yo at 40 weeks and 1 day, who presented with headache and associated nausea. pt states that her BP was elevated at home 2 days ago. BP have been wnl here. No hypereflexia. PIH labs wnl. Pt was given Fioricet for her headache and reports improvement We will discharge home. Pt will need to see her provider to schedule IOL if undelivered Diagnosis Diagnosis: Primary Impression: 40 weeks gestation of Additional Impression: Headache Disposition: 01 DISCHARGE HOME Condition: Good Scripts Vtvgxzbaul-Xlupyozdpzyqs-Fpbodvfa (Fioricet) 50-300-40 Mg Cap 1-2 CAP PO Q8HR Y for HEADACHE, #10 CAP 0 Refills Prov: Cruz Duke MD 09/15/17 Cruz Duke MD Sep 15, 2017 09:27
[2017-09-15] MEDS ORDERED: BUTA1CAP PO (09:46)
== END 2017-09-15 10:01 | disposition home or self-care (01) ==
LOC: HOBED 07:32
DX: O26.893 Other specified pregnancy related conditions, third trimester (principal); R51 Headache; Z3A.40 40 weeks gestation of pregnancy
CPT/HCPCS: 36415; 59025; 80053; 84550; 85027

== ENCOUNTER 2017-09-19 22:39 | Inpatient (IN) | payer OTHER ==
[~2017-09-19] VITALS: Ht 170.2 cm; Wt 96.0 kg
[~2017-09-19 22:39] MED LIST changes: +BUTA1CAP PO
[2017-09-19 23:38] VITALS: BP 140/81; PULSE 86
[2017-09-19] MEDS ORDERED: LACTATED RINGER'S 1000 ML INJ 1,000 ML IV PRN (23:38)
[2017-09-19] MEDS ORDERED: MINERAL OIL 10 ML VIAL TOPICAL PRN (23:45)
[2017-09-19] MEDS ORDERED: LIDOCAINE HCL 1% 50 ML VIAL INFIL PRN (23:45)
[2017-09-19] MEDS ORDERED: LIDOCAINE HCL 1% 50 ML VIAL I-DERMAL PRN (23:45)
[2017-09-19] MEDS ORDERED: CITRIC ACID-SODIUM CITRATE LIQ 30 ML UDC PO SCH (23:45)
[2017-09-19] MEDS ORDERED: OXYTOCIN 30 UNITS-500ML PREMIX 500 ML IV ONE (23:45)
[2017-09-19] MEDS ORDERED: SODIUM CHLORID 0.9% 500 ML INJ 500 ML IV PRN (23:45)
[2017-09-19] MEDS ORDERED: OXYTOCIN 30 UNITS-500ML PREMIX 500 ML IV PRN (23:45)
[2017-09-19] MEDS ORDERED: PENICILLIN G POTASSIUM INJ 5,000,000 UNITS in SODIUM CHLORIDE 0.9% INJ 100 ML IV ONE (23:45)
--- NOTE | 2017-09-19 23:45 | HHI.HP ---
HPI Chief Complaint Pelvic pressure , patient sent by Kristi Bee for induction for postdates Date Seen: Sep 19, 2017 Time Seen: 23:40 Travel History International Travel<30 Days: No Contact w/Intl Traveler<30Days: No Known Affected Area: No History of Present Illness HPI Patient is a 27-year-old black female who is 40-41 weeks sees. Kristi Bee for care and is sent by her office here for postdates induction. She is complaining of some pelvic pressure but otherwise has no complaints at this time, heart rate tracing is reactive, no regular contractions seen. Weeks Gestation: 40 Para: 2 : 5 Last Menstrual Period: Sep 19, 2017 Miscarriage: 2 History Past Medical History Narrative Medical Asthma uses an inhaler Obstetric History Obstetric History 2 vaginal deliveries 2 early losses Social History Alcohol Use: No Tobacco Use: No Substance Abuse: No Allergies-Medications (Allergen,Severity, Reaction): Coded Allergies: sulfamethoxazole (Verified Allergy, Severe, HIVES, 07/11/17) trimethoprim (Verified Allergy, Severe, HIVES, 07/11/17) Home Meds Active Scripts Jsfkwsezeh-Oqynngsxebhnv-Unkacvnl (Fioricet) 50-300-40 Mg Cap, 1-2 CAP PO Q8HR Y for HEADACHE, #10 CAP 0 Refills Prov:Cruz Duke MD 09/15/17 Promethazine (Phenergan) 25 Mg Tablet, 25 MG PO Q6H Y for NAUSEA OR VOMITING, # 10 TAB 0 Refills Prov:France Simeon 07/11/17 Cephalexin (Keflex) 500 Mg Cap, 500 MG PO Q12H for Infection for 7 Days, #14 CAP 0 Refills Prov:France Simeon 07/11/17 Review of Systems General / Constitutional: No: Fever, Weight Gain, Chills, Other Eyes: No: Diploplia, Blurred Vision, Visual changes, Pain, Photophobia HENT: No: Headaches, Vertigo, Lightheadedness Cardiovascular: No: Irregular Rhythm, Chest Pain or Discomfort, Palpitations, Tachycardia, Syncope, Varicosities, Edema, Cyanosis Respiratory: No: Cough, Short of Breath, Other Gastrointestinal: No: Nausea, Vomiting, Diarrhea Genitourinary: No: Decreased Urinary Output, Oliguria Musculoskeletal: No: Limited ROM, Weakness, Cramping, Edema, Pain Skin: No Rash, No Itching, No Dryness, No Lumps, No Change in Pigmentation, No Change in Nails, No Alopecia, No Lesions Neurologic: No: Weakness, Dizziness, Syncope, Focal Abnormalities, Coordination Problem, Headache, Slurred Speech, Seizures Psychiatric: No: Depression, Suicidal Ideations, Homicidal Ideation Endocrine: No: Heat Intolerance, Cold Intolerance, Polydipsia, Polyuria, Other Physical Exam Narrative GENERAL: Well-nourished, well-developed patient. SKIN: Warm and dry. HEAD: Normocephalic and atraumatic. EYES: No scleral icterus. No injection or drainage. ENT: No nasal drainage noted. Mucous membranes pink. Airway patent. NECK: Supple, trachea midline. No JVD. CARDIOVASCULAR: Regular rate and rhythm without murmurs, gallops, or rubs. RESPIRATORY: Breath sounds equal bilaterally. No accessory muscle use. BREASTS: Bilateral exam showed no masses , no retractions, no nipple discharge. ABDOMEN/GI: Abdomen soft, non-tender, bowel sounds present, no rebound, no guarding Gravid to [-40] weeks size Fundal Height: [40-] GENITOURINARY: External Genitalia: intact and normal in appearance BUS glands: [-] Cervix: [post-] Dilatation: [2-3] Effacement: [-20] Station: [-3] Presentation: [vtx-] Membranes: [intact ] Uterine Contractions: [-occasional] FHT's: Category: [-1] Baseline: [-133] Reactive: [R-] Variability: [-mod] Decels: [-none] EXTREMITIES: No cyanosis or edema. BACK: Nontender without obvious deformity. No CVA tenderness. NEUROLOGICAL: Awake and alert. Motor and sensory grossly within normal limits. Five out of 5 muscle strength in all muscle groups. Normal speech. Caprini VTE Risk Assessment Caprini VTE Risk Assessment: No/Low Risk (score <= 1) Caprini Risk Assessment Model Point Value = 1 Point Value = 2 Point Value = 3 Point Value = 5 Age 41-60 Minor surgery BMI > 25 kg/m2 Swollen legs Varicose veins or History of unexplained or recurrent spontaneous Oral contraceptives or hormone replacement Sepsis (< 1 month) Serious lung disease, including pneumonia (< 1 month) Abnormal pulmonary function Acute myocardial infarction Congestive heart failure (< 1 month) History of inflammatory bowel disease Medical patient at bed rest Age 61-74 Arthroscopic surgery Major open surgery (> 45 min) Laparoscopic surgery (> 45 min) Malignancy Confined to bed (> 72 hours) Immobilizing plaster cast Central venous access Age >= 75 History of VTE Family history of VTE Factor V Leiden Prothrombin [id number] Lupus anticoagulant Anticardiolipin antibodies Elevated serum homocysteine Heparin-induced thrombocytopenia Other congenital or acquired thrombophilia Stroke (< 1 month) Elective arthroplasty Hip, pelvis, or leg fracture Acute spinal cord injury (< 1 month) Prophylaxis Regimen Total Risk Factor Score Risk Level Prophylaxis Regimen 0-1 Low Early ambulation 2 Moderate Order ONE of the following: *Sequential Compression Device (SCD) *Heparin 5000 units SQ BID 3-4 Higher Order ONE of the following medications: *Heparin 5000 units SQ TID *Enoxaparin/Lovenox 40 mg SQ daily (WT < 150 kg, CrCl > 30 mL/min) *Enoxaparin/Lovenox 30 mg SQ daily (WT < 150 kg, CrCl > 10-29 mL/min) *Enoxaparin/Lovenox 30 mg SQ BID (WT < 150 kg, CrCl > 30 mL/min) AND/OR *Sequential Compression Device (SCD) 5 or more Highest Order ONE of the following medications: *Heparin 5000 units SQ TID (Preferred with Epidurals) *Enoxaparin/Lovenox 40 mg SQ daily (WT < 150 kg, CrCl > 30 mL/min) *Enoxaparin/Lovenox 30 mg SQ daily (WT < 150 kg, CrCl > 10-29 mL/min) *Enoxaparin/Lovenox 30 mg SQ BID (WT < 150 kg, CrCl > 30 mL/min) AND *Sequential Compression Device (SCD) Data Data Orders Orders Admit To Inpatient (09/19/17 ) Vital Signs (Adult) .Per protocol (09/19/17 23:38) Heart (09/19/17 23:38) Amnioinfusion (09/19/17 23:38) Urinary Catheter Management .ONCE (09/19/17 23:38) Diet Liquid (09/20/17 Breakfast) Lactated Ringer's 1000 Ml Inj (Lr 1000 M (09/19/17 23:38) Lactated Ringer's 1000 Ml Inj (Lr 1000 M (09/19/17 23:38) Sodium Chlorid 0.9% 500 Ml Inj (Ns 500 M (09/19/17 23:45) Sodium Chlor 0.9% 1000 Ml Inj (Ns 1000 M (09/19/17 23:58) Lidocaine 1% Inj (50 Ml) (Xylocaine 1% I (09/19/17 23:45) Citric Acid-Sodium Citrate Liq (Bicitra (09/19/17 23:45) Fentanyl Inj (Fentanyl Inj) (09/19/17 23:45) Fentanyl Inj (Fentanyl Inj) (09/19/17 23:45) Penicillin G Potassium Inj (Pfizerpen-G (09/19/17 23:45) Penicillin G Potassium Inj (Pfizerpen-G (09/20/17 03:45) Complete Blood Count With Diff (09/19/17 23:38) Hold Clot (09/19/17 23:38) Abo/Rh Blood Type (09/19/17 23:38) Urinalysis - C+S If Indicated (09/19/17 23:38) Drug Screen, Random Urine (09/19/17 23:38) Type And Screen (09/19/17:38) Resp Oxygen Non Rebreathe Mask (09/19/17 ) ^ Epidural / Intrathecal Infus (09/19/17 23:38) Oxytocin 30 Units-500ml Premix (Pitocin (09/19/17 23:45) Lidocaine 1% Inj (50 Ml) (Xylocaine 1% I (09/19/17 23:45) Light Mineral Oil (Muri-Lube Oil) (09/19/17 23:45) Ob (2e) Additional Admit Info (09/19/17 23:39) ^ Non Stress Test (09/19/17 23:39) Response To Medication .Post New Med Administration, Reaction (09/19/17 23:39) ^ Discontinue Medication (09/19/17 23:39) Oxytocin Drip (1--30) (09/19/17 23:45) Group B Strep: Positive Assessment/Plan Assessment and Plan 27-year-old black female A2 at 40-41 weeks presents for postdates induction from Kristi Bee's office. Patient having occasional contraction and some pelvic pressure at this time. Cervix 2-3/ thick /and posterior vertex Impression-40--41 week intrauterine multiparous admitted for labor induction Plan--admit to labor and delivery, begin Pitocin labor induction, in the morning rupture membranes and anticipate vaginal delivery Eliu Sanchez II, MD Sep 19, 2017 23:45
[2017-09-19] MEDS ORDERED: SODIUM CHLOR 0.9% 1000 ML INJ 1,000 ML IV PRN (23:58)
[2017-09-20] VITALS (37 sets, daily range): BP systolic 93–142; BP diastolic 51–95; PULSE 41–110; RESP 18–20; TEMP 97.6–98.9
[2017-09-20 01:13] LABS: AUTOMATED NEUTROPHIL # 5.1 TH/MM3 (1.8-7.7); BASOPHIL % 0.4 % (0.0-2.0); EOSINOPHIL # 0.2 TH/MM3 (0-0.4); EOSINOPHIL % 2.8 % (0.0-4.0); HEMATOCRIT 29.5 % (35.0-46.0); LYMPH % 24.7 % (9.0-44.0); MEAN CELL VOLUME 91.5 FL (80.0-100.0); MEAN CORPUSCULAR HEMOGLOBIN 30.9 PG (27.0-34.0); MEAN CORPUSCULAR HGB CONC 33.7 % (32.0-36.0); MEAN PLATELET VOLUME 7.7 FL (7.0-11.0); MONO % 9.7 % (0.0-8.0); MONOCYTE # 0.8 TH/MM3 (0-0.9); NEUT % 62.4 % (16.0-70.0); PLATELET COUNT 263 TH/MM3 (150-450); RED BLOOD COUNT 3.23 MIL/MM3 (4.00-5.30); RED CELL DISTRIBUTION WIDTH 14.4 % (11.6-17.2); WHITE BLOOD COUNT 8.2 TH/MM3 (4.0-11.0)
[2017-09-20] MEDS: LACTATED RINGER'S 1000 ML INJ 1,000 ML IV SCH ×2 (01:13→01:59)
[2017-09-20 01:21] LABS: AMORPHOUS SEDIMENT, URINE FEW; BACTERIA, URINE RARE /hpf; BILIRUBIN, URINE NEG (NEG); BLOOD, URINE NEG (NEG); GLUCOSE,URINE NEG (NEG); KETONE, URINE NEG (NEG); MUCUS URINE FEW /lpf (OCC); NITRITE,URINE NEG (NEG); SQUAMOUS EPITHELIAL CELL URINE <1 /hpf (0-5); URINE COLOR YELLOW (YELLW/STRAW); URINE LEUKOCYTE ESTERASE MOD (NEG)
[2017-09-20] MEDS ORDERED: PENICILLIN G POTASSIUM INJ 2,500,000 UNITS in SODIUM CHLORIDE 0.9% INJ 100 ML IV SCH ×5 (03:45→06:00)
--- NOTE | 2017-09-20 09:18 | PD.LABORPN ---
Subjective Subjective Patient seen and examined by OB team. Patient currently experiencing intense labor pain, but declines epidural. Otherwise doing well with normal VS. Baby continues to be active. Objective Vital Signs Vital Signs Date Time Temp Pulse Resp B/P (MAP) Pulse Ox O2 Delivery O2 Flow Rate FiO2 09/20/17 08:48 20 09/20/17 08:48 74 115/87 (96) 09/20/17 08:02 101 110/95 (100) 09/20/17 07:31 81 97/60 (72) 09/20/17 07:28 72 123/54 (77) 09/20/17 07:15 20 09/20/17 07:03 41 142/85 (104) 09/20/17 06:45 18 09/20/17 06:31 63 103/61 (75) 09/20/17 06:12 97.6 09/20/17 06:05 78 18 09/20/17 06:00 76 103/58 (73) 09/20/17 05:35 71 09/20/17 05:30 70 104/51 (68) 09/20/17 05:15 20 09/20/17 05:10 73 09/20/17 05:05 76 09/20/17 05:01 102/62 (75) 09/20/17 04:47 75 117/68 (84) 09/20/17 04:15 20 09/20/17 04:12 73 130/74 (92) 09/20/17 03:26 20 09/20/17 03:25 98.0 09/20/17 03:22 85 131/71 (91) 09/20/17 02:45 20 09/20/17 02:37 80 138/82 (100) 09/20/17 01:54 71 20 135/75 (95) Objective Pelvic Exam: Cervix: Midportion Dilatation: 6-7 Effacement: 100% Station: -1 Presentation: Vertex Membranes: AROM Uterine Contractions: Q3m FHT's: Category: 1 Baseline: 120s Reactive: Positive Variability: Moderate Decels: None Weeks Gestation: 40 Artificial ROM date: Sep 20, 2017 Artifical ROM time: 08:30 Assessment/Plan Problem List: (1) 40 weeks gestation of ICD Codes: Z3A.40 - 40 weeks gestation of Status: Acute Assessment and Plan 27 y/o at 40/6 currently in active labor. 1. IUP at 40 weeks currently in active labor -Continue routine antepartum care -Patient progressing well -AROM completed with clear fluid -Patient declines epidural -Category 1 FHT, reassuring 2. GBS Positive -Continue Penicillin G for prophylaxis 3. Asthma -Controlled on rescue albuterol inhaler only SDW: Dr. Sanchez, Charlie Murrell MD R2 Sep 20, 2017 09:18
[2017-09-20] MEDS ORDERED: LIDOCAINE HCL 1% 20 ML VIAL ONE (09:20)
--- NOTE | 2017-09-20 09:44 | PD.OB.DELI ---
Weeks gestation: 40 Artificial ROM date: Sep 20, 2017 Artifical ROM time: 08:30 Anesthesia: None Episiotomy: None Vaginal Delivery: Normal Presentation: Occiput anterior Nuchal Cord: x1 Delayed cord clamping (45 sec): Yes : Female Delivery date: Sep 20, 2017 Delivery time: 09:26 Five Minute : 8 Ten Minute : 9 Weight: 3270g Placenta: Spontaneous delivery Additional Information Delivery with: Dr. Sanchez, Dr. Gomez, and Charlie Murrell MD R2 Sep 20, 2017 09:44
[2017-09-20] MEDS ORDERED: WITCH HAZEL 50%/GLYCERIN 12.5% 40 PAD JAR TOPICAL PRN (09:45)
[2017-09-20] MEDS ORDERED: SODIUM CHLORIDE 0.9% FLUSH 10 ML FLUSH IV FLUSH PRN (09:45)
[2017-09-20] MEDS ORDERED: ALUMINUM/MAGNESIUM/SIMETH 30 ML CUP PO PRN (09:45)
[2017-09-20] MEDS ORDERED: ONDANSETRON ODT 4 MG TAB PO PRN (09:45)
[2017-09-20] MEDS ORDERED: BENZOCAINE 20% TOPICAL SPRAY 60 ML CAN TOPICAL PRN (09:45)
[2017-09-20] MEDS ORDERED: ACETAMINOPHEN 325 MG TAB PO PRN (09:45)
[2017-09-20] MEDS ORDERED: ZOLPIDEM TARTRATE 5 MG TAB PO PRN (09:45)
[2017-09-20] MEDS ORDERED: oxyCODONE/ACETAMINOPHEN 5 MG/325 MG TAB PO PRN (10:00)
[2017-09-20] MEDS ORDERED: OXYTOCIN 30 UNITS-500ML PREMIX 500 ML IV SCH (10:00)
[2017-09-20] MEDS ORDERED: DIPHTH/TETANUS/ACEL PERTUSSIS (BOOSTER) 0.5 ML VIAL/PFS IM ONE (16:00)
[2017-09-20] MEDS ORDERED: MEASLES, MUMPS, RUBELLA VACCINE 0.5 ML VIAL SQ ONE (16:00)
[2017-09-20] MEDS: oxyCODONE/ACETAMINOPHEN 5 MG/325 MG TAB PO PRN (18:18)
[2017-09-20] MEDS: IBUPROFEN 800 MG TAB PO PRN (18:18)
[2017-09-20] MEDS ORDERED: SODIUM CHLORIDE 0.9% FLUSH 10 ML FLUSH IV FLUSH SCH (21:00)
--- NOTE | 2017-09-21 00:15 | HHI.DCPOC ---
Discharge Care Plan Diagnosis: (1) Vaginal delivery Report Symptoms to Your Doctor -Temperature above 100.5 degrees -Redness, of incision or excessive or foul smelling drainage -Unusual pain or calf pain -Increased vaginal bleeding -Painful or difficulty urinating -Feelings of extreme sadness or anxiety after 2 weeks Goals to Promote Your Health * To prevent worsening of your condition and complications * To maintain your health at the optimal level Directions to Meet Your Goals Take your medications as prescribed Follow your dietary instruction Follow activity as directed Ensure plenty of rest for recovery Drink fluids for hydration Keep your appointments as scheduled Take your immunizations and boosters as scheduled If your symptoms worsen call your PCP, if no PCP go to Urgent Care Center or Emergency Room Smoking is Dangerous to Your Health. Avoid second hand smoke Call the 24-hour crisis hotline for domestic abuse at Charlie Gomez MD R2 Sep 21, 2017 00:15
[2017-09-21] MEDS ORDERED: IBUP1TAB7 PO (00:17)
[2017-09-21] MEDS ORDERED: PERI PO (00:17)
--- NOTE | 2017-09-21 07:22 | HHI.OB ---
Subjective Post Day: 1 Objective Vitals/I&O Vital Signs Date Time Temp Pulse Resp B/P (MAP) Pulse Ox O2 Delivery O2 Flow Rate FiO2 09/20/17 19:00 79 18 133/73 (93) 09/20/17 19:00 98.9 09/20/17 12:15 97.8 74 18 124/78 (93) 09/20/17 10:45 20 09/20/17 10:30 68 106/71 (83) 09/20/17 10:12 20 09/20/17 10:00 20 09/20/17 10:00 70 121/78 (92) 09/20/17 09:45 97.9 20 09/20/17 09:30 20 09/20/17 09:30 95 108/80 (89) 09/20/17 09:28 110 93/54 (67) 09/20/17 08:48 20 09/20/17 08:48 74 115/87 (96) 09/20/17 08:02 101 110/95 (100) 09/20/17 07:31 81 97/60 (72) 09/20/17 07:28 72 123/54 (77) Objective Remarks GENERAL: Well-nourished, well-developed patient. CARDIOVASCULAR: Regular rate and rhythm without murmurs, gallops, or rubs. RESPIRATORY: Breath sounds equal bilaterally. No accessory muscle use. ABDOMEN/GI: Abdomen soft, non-tender. Fundus: Firm, non-tender at umbilicus. GENITOURINARY: Light to moderate bleeding. EXTREMITIES: No cyanosis or edema, non-tender, without signs of DVT. Medications and IVs Current Medications Medications (Trade) Dose Ordered Sig/Justyna Route Start Time Stop Time Status Last Admin Oxytocin 500 ml @ 0 mls/hr TITRATE PRN IV 09/19/17 23:45 09/20/17 01:58 Penicillin G Potassium 5163360 units/Sodium Chloride 100 ml @ 200 mls/hr Q4H IV 09/20/17 06:00 09/20/17 06:00 (NS Flush) 2 ml BID IV FLUSH 09/20/17 21:00 (NS Flush) 2 ml UNSCH PRN IV FLUSH 09/20/17 09:45 (Tylenol) 650 mg Q4H PRN PO 09/20/17 09:45 (Motrin) 800 mg Q8H PRN PO 09/20/17 09:45 09/20/17 18:18 (Americaine 20% Top Spr) 1 spray Q4H PRN TOPICAL 09/20/17 09:45 (Tucks Pads) 1 applic QID PRN TOPICAL 09/20/17 09:45 (Sheree-Colace) 2 tab Q12H PRN PO 09/20/17 09:45 (Ambien) 5 mg HS PRN PO 09/20/17 09:45 (Mag-Al Plus Susp Liq) 15 ml Q8H PRN PO 09/20/17 09:45 (Zofran Odt) 4 mg Q6H PRN PO 09/20/17 09:45 (Percocet 5-325 Mg) 1 tab Q4H PRN PO 09/20/17 10:00 09/20/17 18:18 (Percocet 5-325 Mg) 2 tab Q4H PRN PO 09/20/17 10:00 Assessment/Plan Problem List: (1) 40 weeks gestation of ICD Codes: Z3A.40 - 40 weeks gestation of Status: Acute Assessment and Plan 27-year-old black female A2 at 40-41 weeks presents for postdates induction from Kristi Bee's office. Patient having occasional contraction and some pelvic pressure at this time. Cervix 2-3/ thick /and posterior vertex Impression-40--41 week intrauterine multiparous admitted for labor induction Plan--admit to labor and delivery, begin Pitocin labor induction, in the morning rupture membranes and anticipate vaginal delivery Charlie Gomez MD R2 Sep 21, 2017 07:22
[2017-09-21 08:00] VITALS: BP 126/86; PULSE 75; RESP 18; TEMP 98.1; O2SAT 96
[2017-09-21] MEDS ORDERED: medroxyPROGESTERone ACETATE SUSP 150 MG/ML SYRINGE IM ONE (08:00)
[2017-09-21] MEDS: IBUPROFEN 800 MG TAB PO PRN ×2 (08:12→21:18)
[2017-09-21] MEDS: DOCUSATE SODIUM 50 MG/SENNA 8.6 MG TAB PO PRN ×2 (08:12→21:18)
--- NOTE | 2017-09-21 08:22 | HHI.OB ---
Subjective Post Day: 1 Remarks Pt seen and examined this morning. day # 1 AFVSS overnight. Decreased lochia. Denies dysuria. No breast tenderness. She is feeding the baby via bottle. Appetite good. No nausea or vomiting. Patient has not yet had a bowel movement or endorse bowel gas. Ambulating well. Denies calf pain or shortness of breath. Otherwise, she is doing well this morning and has no other concerns. Objective Vitals/I&O Vital Signs Date Time Temp Pulse Resp B/P (MAP) Pulse Ox O2 Delivery O2 Flow Rate FiO2 09/20/17 19:00 79 18 133/73 (93) 09/20/17 19:00 98.9 09/20/17 12:15 97.8 74 18 124/78 (93) 09/20/17 10:45 20 09/20/17 10:30 68 106/71 (83) 09/20/17 10:12 20 09/20/17 10:00 20 09/20/17 10:00 70 121/78 (92) 09/20/17 09:45 97.9 20 09/20/17 09:30 20 09/20/17 09:30 95 108/80 (89) 09/20/17 09:28 110 93/54 (67) 09/20/17 08:48 20 09/20/17 08:48 74 115/87 (96) Objective Remarks GENERAL: Well-nourished, well-developed patient. CARDIOVASCULAR: Regular rate and rhythm without murmurs, gallops, or rubs. RESPIRATORY: Breath sounds equal bilaterally. No accessory muscle use. ABDOMEN/GI: Abdomen soft, non-tender. Fundus: Firm, non-tender at umbilicus. GENITOURINARY: Light to moderate bleeding. EXTREMITIES: No cyanosis or edema, non-tender, without signs of DVT. Medications and IVs Current Medications Medications (Trade) Dose Ordered Sig/Justyna Route Start Time Stop Time Status Last Admin Oxytocin 500 ml @ 0 mls/hr TITRATE PRN IV 09/19/17 23:45 09/20/17 01:58 Penicillin G Potassium [id number] units/Sodium Chloride 100 ml @ 200 mls/hr Q4H IV 09/20/17 06:00 09/20/17 06:00 (NS Flush) 2 ml BID IV FLUSH 09/20/17 21:00 (NS Flush) 2 ml UNSCH PRN IV FLUSH 09/20/17 09:45 (Tylenol) 650 mg Q4H PRN PO 09/20/17 09:45 (Motrin) 800 mg Q8H PRN PO 09/20/17 09:45 09/21/17 08:12 (Americaine 20% Top Spr) 1 spray Q4H PRN TOPICAL 09/20/17 09:45 09/21/17 08:11 (Tucks Pads) 1 applic QID PRN TOPICAL 09/20/17 09:45 09/21/17 08:11 (Sheree-Colace) 2 tab Q12H PRN PO 09/20/17 09:45 09/21/17 08:12 (Ambien) 5 mg HS PRN PO 09/20/17 09:45 (Mag-Al Plus Susp Liq) 15 ml Q8H PRN PO 09/20/17 09:45 (Zofran Odt) 4 mg Q6H PRN PO 09/20/17 09:45 (Percocet 5-325 Mg) 1 tab Q4H PRN PO 09/20/17 10:00 09/20/17 18:18 (Percocet 5-325 Mg) 2 tab Q4H PRN PO 09/20/17 10:00 Assessment/Plan Problem List: (1) 40 weeks gestation of ICD Codes: Z3A.40 - 40 weeks gestation of Status: Acute (2) Vaginal delivery ICD Codes: O80 - Vaginal delivery Status: Acute Assessment and Plan 27 y/o female who is day # 1 s/p . -Continue routine care. -Percocet and Motrin PRN pain. -Encouraged OOB. Advised pelvic rest for 6 wks. -Re: ctrl, she would like Depo-Provera, orders placed. -Anticipate discharge tomorrow pending clinical course. lorene Duke MD Discharge Planning Likely tomorrow pending clinical course Charlie Gomez MD R2 Sep 21, 2017 08:22
[2017-09-21] MEDS ORDERED: DIPHTH/TETANUS/ACEL PERTUSSIS (BOOSTER) 0.5 ML VIAL/PFS IM ONE (17:30)
[2017-09-21 20:00] VITALS: BP 129/72; PULSE 81; RESP 17; TEMP 97.8; O2SAT 98
[2017-09-21] MEDS: oxyCODONE/ACETAMINOPHEN 5 MG/325 MG TAB PO PRN (21:18)
--- NOTE | 2017-09-22 08:45 | HHI.OB ---
Subjective Post Day: 2 Remarks Patient seen and examined this morning. day #2. AFVSS overnight. Mother is feeding the baby via formula. Appetite good without nausea or vomiting. Patient endorses flatus this AM. Ambulating well without issues. Decreased lochia. Denies dysuria. No breast tenderness. Denies fevers, chills, CP, SOB, calf pain. Patient is otherwise doing well this AM without specific complaints or concerns. Objective Vitals/I&O Vital Signs Date Time Temp Pulse Resp B/P (MAP) Pulse Ox O2 Delivery O2 Flow Rate FiO2 09/21/17 20:00 97.8 81 17 129/72 (91) 98 Objective Remarks GENERAL: Well-nourished, well-developed patient. CARDIOVASCULAR: Regular rate and rhythm without murmurs, gallops, or rubs. RESPIRATORY: Breath sounds equal bilaterally. No accessory muscle use. ABDOMEN/GI: Abdomen soft, non-tender. Fundus: Firm, non-tender at umbilicus. GENITOURINARY: Light to moderate bleeding. EXTREMITIES: No cyanosis or edema, non-tender, without signs of DVT. Medications and IVs Current Medications Medications (Trade) Dose Ordered Sig/Justyna Route Start Time Stop Time Status Last Admin Oxytocin 500 ml @ 0 mls/hr TITRATE PRN IV 09/19/17 23:45 09/20/17 01:58 Penicillin G Potassium 7423832 units/Sodium Chloride 100 ml @ 200 mls/hr Q4H IV 09/20/17 06:00 09/20/17 06:00 (NS Flush) 2 ml BID IV FLUSH 09/20/17 21:00 (NS Flush) 2 ml UNSCH PRN IV FLUSH 09/20/17 09:45 (Tylenol) 650 mg Q4H PRN PO 09/20/17 09:45 (Motrin) 800 mg Q8H PRN PO 09/20/17 09:45 09/21/17 21:18 (Americaine 20% Top Spr) 1 spray Q4H PRN TOPICAL 09/20/17 09:45 09/21/17 08:11 (Tucks Pads) 1 applic QID PRN TOPICAL 09/20/17 09:45 09/21/17 08:11 (Sheree-Colace) 2 tab Q12H PRN PO 09/20/17 09:45 09/21/17 21:18 (Ambien) 5 mg HS PRN PO 09/20/17 09:45 (Mag-Al Plus Susp Liq) 15 ml Q8H PRN PO 09/20/17 09:45 (Zofran Odt) 4 mg Q6H PRN PO 09/20/17 09:45 (Percocet 5-325 Mg) 1 tab Q4H PRN PO 09/20/17 10:00 09/21/17 21:18 (Percocet 5-325 Mg) 2 tab Q4H PRN PO 09/20/17 10:00 Assessment/Plan Problem List: (1) 40 weeks gestation of ICD Codes: Z3A.40 - 40 weeks gestation of Status: Acute (2) Vaginal delivery ICD Codes: O80 - Vaginal delivery Status: Acute Assessment and Plan 27 y/o female who is day #2 s/p . -Continue routine care. -Continue Motrin PRN pain. -Encouraged OOB. Advised pelvic rest for 6 wks. -Re: ctrl, she would like Depo-Provera, given 2/24 AM -Stable for discharge today dw Dr. Sanchez Discharge Planning Likely tomorrow pending clinical course Patrick Weiss MD Sep 22, 2017 08:45
== END 2017-09-22 13:08 | disposition home or self-care (01) | DRG 775 ==
LOC: HOBED 22:39 → H2EA 23:39 → H1EA 09-20 11:38
PROVIDERS: ADMIT Obstetrics & Gynecology Maternal & Fetal Medicine; ATTEND Obstetrics & Gynecology Maternal & Fetal Medicine
PROC: 3E033VJ Introduction of Other Hormone into Peripheral Vein, Percutaneous Approach (ICD-10-PCS; 2017-09-19)
PROC: 10E0XZZ Delivery of Products of Conception, External Approach (ICD-10-PCS; principal; 2017-09-20)
PROC: 10907ZC Drainage of Amniotic Fluid, Therapeutic from Products of Conception, Via Natural or Artificial Opening (ICD-10-PCS; 2017-09-20)
DX: O48.0 Post-term pregnancy (principal); J45.909 Unspecified asthma, uncomplicated; Z37.0 Single live birth; Z3A.40 40 weeks gestation of pregnancy; O99.52 Diseases of the respiratory system complicating childbirth; O69.81X0 Labor and delivery complicated by cord around neck, without compression, not applicable or unspecified; O99.824 Streptococcus B carrier state complicating childbirth
CPT/HCPCS: 59025; 80307; 81001; 85025; 86850; 86900; 86901; 90715; J1050; J2540; J2590; J3010; J7120